=== PATIENT | male | born 1935 | race Caucasian/White ===

== ENCOUNTER 2018-11-06 10:49 | Emergency (ER) | payer OTHER, MEDICARE ==
[~2018-11-06] VITALS: Ht 177.8 cm; Wt 102.1 kg
[~2018-11-06 10:49] MED LIST: METFORMIN HCL500 MG; TOPROL XL100 MG
[2018-11-06 10:59] VITALS: BP 135/98
== END 2018-11-06 12:56 | disposition home or self-care (01) ==
LOC: ER 10:49
DX: S01.81XD Laceration without foreign body of other part of head, subsequent encounter (principal); I10 Essential (primary) hypertension; I25.10 Atherosclerotic heart disease of native coronary artery without angina pectoris; E11.9 Type 2 diabetes mellitus without complications; W19.XXXD Unspecified fall, subsequent encounter

== ENCOUNTER 2019-01-01 14:39 | Inpatient (IN) | payer OTHER, MEDICARE ==
[~2019-01-01] VITALS: Ht 177.8 cm; Wt 101.2 kg
--- NOTE | ~2019-01-01 | EMS ---
[facility] [address] [place] [address] EMS Patient Care Report Name: SHANI CASTELLANOS Room #: REG MAEVE Smith#: [id number] Admission: 01/01/19 Attend Phys: Discharge: Date of : 37 Report #: [id number] THIS REPORT FOR: //name// Report Transmitted: 01/01/2019 14:58 EMS Care Summary [facility] MED-ACT Incident [id number] @ 01/01/2019 14:02 Incident Location [address] [place] [address] Patient SHANI CASTELLANOS Male, 83 Years 1935 Patient Address [address] [place] [id number] Patient History Cardiac Arrythmia,Diabetes,Coronary Artery Bypass Graft (CABG), Patient Allergies No known allergies, Patient Medications Eliquis, Furosemide, Chief Complaint Dizzy Disposition Transported No Lights/[place] Dispatch Reason Breathing Problem Transported To [facility] Narrative [id number] was dispatched to the listed location for trouble breathing. Upon arrival patient sitting in the urgent care room complaining of dizziness. Patient stated that the dizziness started last Monday and he has had bouts of SOB that come and go. Patient stated they would just come on out of no where [facility] [address] [place] [address] EMS Patient Care Report Name: SHANI CASTELLANOS Room #: JOANA Smith#: [id number] Admission: 01/01/19 Attend Phys: Discharge: Date of : 37 Report #: [id number] whether he was sitting or up moving around. Patient denied any chest pain, back pain, abd. pain, SOB with EMS. Patient stated that he had been recently ill with some vomiting and chills. Patient stated that the facility called 911 due to his BP being low and low HR. On EMS arrival patient was hypertensive, in A flutter with a 5:1 conduction ratio and ventricular rate at approx. 40bpm, atrial rate approx. 270 bpm. Patient stated that he was not feeling dizzy sitting down with us but when he first got up from the urgent care bed to our bed he said he started to feel a little dizzy. Patient stated that he regulates his diabetes with insulin and that he had just eaten pancakes with syrup not long before EMS picked him up. Initial Vitals @14:14P: 200,[place] Suspected: false @14:26P: 165,BP: 194/72, @14:31P: 149,BP: 195/70, @14:08P: 166,R: 16,BP: 199/73,Pain: 0/10,GCS: 15,Glucose: 295,SpO2: 96,Revised Trauma: 12, Assessments @14:09MENTAL:No Abnormalities,SKIN:No Abnormalities,HEENT:Head/Face: No Abnormalities,Eyes: No Abnormalities,Neck/Airway: No Abnormalities,LUNG SOUNDS:General: No Abnormalities,Left Upper: No Abnormalities,Right Upper: No Abnormalities,Left Lower: No Abnormalities,Right Lower: No Abnormalities,ABDOMEN:General: No Abnormalities,Left Upper: No Abnormalities,Right Upper: No Abnormalities,Left Lower: No Abnormalities,Right Lower: No Abnormalities,PELVIS//GI:No Abnormalities,EXTREMITIES:Left Arm: No Abnormalities,Right Arm: No Abnormalities,Left Leg: No Abnormalities,Right Leg: No Abnormalities,PULSE:NEURO:No Abnormalities, Impression Dizziness Procedures @14:35Normal Saline (.9% NaCl) 250cc (18 ga) Site: Antecubital-RightResponse: UnchangedSucceeded@14:1412-Lead ECGResponse: UnchangedSucceeded Timeline 14:01,Call Received 14:01,Psap Call 14:02,Dispatched 14:03,En Route 14:05,On Scene 14:08,At Patient 14:08,BP: 199/73 M,PULSE: 166,RR: 16 R,SPO2: 96 Ox,ETCO2: ,B,PAIN: 0,GCS: 15, 14:14,12-Lead ECG,Response: UnchangedSucceeded, [facility] [address] [place] [address] EMS Patient Care Report Name: SHANI CASTELLANOS Room #: REG [facility].#: [id number] Admission: 01/01/19 Attend Phys: Discharge: Date of : 39 Report #: [id number] 14:14,BP: / M,PULSE: 200,RR: R,SPO2: Ox,ETCO2: ,BG: ,PAIN: ,GCS: , 14:26,BP: 194/72 M,PULSE: 165,RR: R,SPO2: Ox,ETCO2: ,BG: ,PAIN: ,GCS: , 14:27,Depart Scene 14:31,BP: 195/70 M,PULSE: 149,RR: R,SPO2: Ox,ETCO2: ,BG: ,PAIN: ,GCS: , 14:35,Normal Saline (.9% NaCl) 250cc 18 ga Site: Antecubital-Right,Response: UnchangedSucceeded, 14:35,At Destination 15:06,Call Closed Disclaimer v1.1 Copyright 2019 Locationary This EMS Care Summary contains data elements from the applicable legal record (which may be displayed differently). It is designed to provide pertinent information for the following purposes: continuity of care, clinical quality, and state data reporting. The complete legal record is available to ED staff and administrators of the receiving hospital in [employer]'s Patient Tracker. All data is provided "as is."
[2019-01-01 14:39] VITALS: BP 149/82
[~2019-01-01 14:39] MED LIST changes: -METFORMIN HCL500 MG; +METFORMIN HCL500 MG PO
[2019-01-01 15:18] LABS: ABSOLUTE NEUTROPHILS 6.7 thou/uL (1.4-8.2); BASOPHILS 0.6 % (0.0-2.0); EOSINOPHILS 1.4 % (0.0-3.0); HEMATOCRIT 34.4 % (42.0-52.0); HEMOGLOBIN 11.1 gm/dL (14.0-18.0); LYMPHOCYTES 10.4 % (24.0-44.0); MCH 27.1 pg (26.0-34.0); MCHC 32.4 g/dL (28.0-37.0); MCV 83.5 fL (80.0-100.0); MONOCYTES 8.3 % (1.0-8.0); POLYS 79.3 % (36.0-66.0); RBC 4.12 mil/uL (4.50-6.00); WBC 8.5 thou/uL (4.0-11.0)
[2019-01-01 15:25] LABS: ANION GAP 11 mmol/L (7-16); BUN 45 mg/dL (7-18); CALCIUM 9.1 mg/dL (8.5-10.1); CHLORIDE 101 mmol/L (98-107); CO2 26 mmol/L (21-32); CREATININE 1.7 mg/dL (0.7-1.3); GLUCOSE 277 mg/dL (74-106); POTASSIUM 4.3 mmol/L (3.5-5.1); SODIUM 138 mmol/L (136-145)
[2019-01-01 15:34] LABS: MAGNESIUM 1.7 mg/dL (1.8-2.4); TROPONIN-I <0.06 ng/mL (<0.06)
[2019-01-01 15:39] LABS: PLATELET COUNT 140 thou/uL (150-400); PLATELET ESTIMATE NORMAL
[2019-01-01 15:40] LABS: LARGE PLATELETS FEW
[2019-01-01] MEDS ORDERED: ELIQUIS5 MG PO (17:04)
[2019-01-01 17:22] LABS: INR 1.1
[2019-01-01 17:26] VITALS: BP 169/116
[2019-01-01 18:09] VITALS: BP 166/137
--- NOTE | 2019-01-01 19:33 | NUR ---
PT ARRIVED @1830 01/01/19, PT IN A-FLUTTER HR IN THE 20-30'S, MAG GTT RUNNING FROM THE ER. DR CASTORENA PAGED FOR HR, DR SIM CALLED BACK, NEW RECOMMENDATIONS RECIEVED. REPORT GIVEN TO BARRY CADENA.
[2019-01-01] MEDS ORDERED: RAMIPRIL2.5 MG PO (20:38)
[2019-01-02] VITALS (24 sets, daily range): BP systolic 111–191; BP diastolic 38–102
--- NOTE | 2019-01-02 01:09 | NUR ---
ASSUMED CARE OF PATIENT AT 1900. ADMISSION COMPLETE. PATIENT ABLE TO ANSWER ALL QUESTIONS EXCEPT FOR ACCURATE MEDICATION LIST. GRANDDAUGHTER TO BRING IN THE AM WELL ADVANCED DIRECTIVE. HEART RATE REMAINS IN THE 20'S WITH A FLUTTER, PATIENT ASYMPTOMATIC. BP IN THE 160'S. RESTING AT THIS TIME. CLOSELY MONITORING. POC GOALS ESTABLISHED.
[2019-01-02 02:34] LABS: HEMATOCRIT 33.5 % (42.0-52.0); HEMOGLOBIN 10.7 gm/dL (14.0-18.0); MCH 26.7 pg (26.0-34.0); MCV 83.6 fL (80.0-100.0); RBC 4.01 mil/uL (4.50-6.00); RDW 16.4 % (10.5-14.5); WBC 8.4 thou/uL (4.0-11.0)
[2019-01-02 02:40] LABS: CALCIUM 8.8 mg/dL (8.5-10.1); CREATININE 1.7 mg/dL (0.7-1.3); POTASSIUM 4.6 mmol/L (3.5-5.1)
--- NOTE | 2019-01-02 08:22 | EKG ---
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
--- NOTE | 2019-01-02 08:39 | 2DMMODE ---
[facility] [address] [place] [address] 2 D/M-MODE ECHOCARDIOGRAM Name: SHANI CASTELLANOS Room #: 241-P ADM IN M.R.#: [id number] Admission: 01/01/19 Attend Phys: Kris Mixon MD Discharge: Date of : 37 Report #: [id number] THIS REPORT FOR: //name// APPROVED REPORT Study performed: 01/02/2019 07:06:36 EXAM: Comprehensive 2D, Doppler, and color-flow Echocardiogram Patient Location: ICU Room #: 241 Status: routine BSA: 2.16 HR: 30 bpm BP: 157/61 mmHg Rhythm: Bradycardia Other Information Study Quality: Fair Technically limited study due to body habitus. Indications Bradycardia Hx: Aflutter, CABG, HTN, DM. Echo Enhancing Agent Indication: Endocardial border delineation Agent(s) / Amount(s) Used: Optison 5 cc 2D Dimensions RVDd: 42.31 mm IVSd: 9.91 (7-11mm) LVOT Diam: 21.39 (18-24mm) LVDd: 51.67 mm PWd: 10.21 (7-11mm) Ascending Ao: 30.81 (22-36mm) LVDs: 31.35 (25-40mm) Aortic Root: 34.59 mm Volumes Left Atrial Volume (Systole) Single Plane 4CH: 52.49 mL Single Plane 2CH: 81.80 mL Aortic Valve AoV Peak Keith.: 2.25 m/s AO Peak Gr.: 20.25 mmHg LVOT Max P.95 mmHg AO Mean Gr.: 9.78 mmHg [facility] [address] [place] [address] 2 D/M-MODE ECHOCARDIOGRAM Name: SHANI CASTELLANOS Room #: 241-P [facility] IN [facility].#: [id number] Admission: 01/01/19 Attend Phys: Kris Mixon MD Discharge: Date of : 37 Report #: [id number] AO V2 Mean: 1.48 m/s LVOT Max V: 1.22 m/s AO V2 VTI: 55.44 cm SOLOMON Vmax: 1.95 cm2 Mitral Valve E/A Ratio: 2.0 MV Decel. Time: 218.80 ms MV E Max Keith.: 1.31 m/s MV A Keith.: 0.67 m/s MV PHT: 63.45 ms Pulmonary Valve PV Peak Keith.: 0.99 m/s PV Peak Gr.: 3.89 mmHg Tricuspid Valve TR Peak Keith.: 3.80 m/s RAP Estimate: 10.00 mmHg TR Peak Gr.: 57.00 mmHg PA Pressure: 67.00 mmHg Left Ventricle The left ventricle is normal size. There is normal LV segmental wall motion. There is normal left ventricular wall thickness. Left ventricular systolic function is normal. LVEF is 60%. This study is not technically sufficient to allow evaluation of the LV diastolic function due to atrial fibrillation. Right Ventricle Right ventricle is not well visualized. Atria Left atrium is mildly dilated. The right atrium size is normal. Aortic Valve Aortic valve is mild calcified. Trace aortic regurgitation. There is borderline mild valvular aortic stenosis. Calculated aortic valve area is 1.9 cm2 with maximum pressure gradient of 21 mmHg and mean pressure gradient of 10 mmHg. Mitral Valve The mitral valve is normal in structure. Mild mitral regurgitation. Tricuspid Valve The tricuspid valve is normal in structure. Mild to moderate tricuspid regurgitation. Estimated PAP is 65-70mmHg. [facility] [address] [place] [address] 2 D/M-MODE ECHOCARDIOGRAM Name: SHANI CASTELLANOS Room #: 241-P ADM IN M.R.#: [id number] Admission: 01/01/19 Attend Phys: Kris Mixon MD Discharge: Date of : 37 Report #: [id number] Pulmonic Valve Pulmonic valve is not well visualized. Trace pulmonic regurgitation. Great Vessels The aortic root is normal in size. The ascending aorta is normal in size. IVC is normal in size and collapses <50% with inspiration. Pericardium There is no pericardial effusion. <Conclusion> Left ventricular systolic function is normal. There is normal LV segmental wall motion. LVEF is 60%. Aortic valve is mild calcified. Mild valvular aortic stenosis, no insufficiency. Calculated aortic valve area is 1.9 cm2 with maximum pressure gradient of 21 mmHg and mean pressure gradient of 10 mmHg. The mitral valve is normal in structure. Mild mitral regurgitation. Mild to moderate tricuspid regurgitation. Estimated pulmonary artery pressure of 65-70mmHg. There is no pericardial effusion. <ELECTRONICALLY SIGNED> By: Erick Tate MD, FACC 01/02/19837 7 7 Erick Tate MD, FACC /INF
[2019-01-02] MEDS ORDERED: GLUCOPHAGE1000 MG PO (10:50)
[2019-01-02] MEDS ORDERED: LOPRESSOR50 MG PO (10:54)
[2019-01-02] MEDS ORDERED: FUROSEMIDE 20 M20 M1 PO (10:57)
[2019-01-02] MEDS ORDERED: AMARYL2 M1 PO (10:59)
[2019-01-02] MEDS ORDERED: PANTOPRAZOLE SO40 M1 PO (11:03)
[2019-01-02] MEDS ORDERED: ATORVASTATIN CA80 MG PO (11:06)
--- NOTE | 2019-01-02 11:14 | NUR ---
ALERT AND ORIENTED AND DENIED PAIN. KAMALA A-FLUTTER ON THE MONITOR. KEPT NPO FOR PACEMAKER PLACEMENT. PATIENT OUT OF ROOM AT 1045 TO E.P LAB FOR PACEMAKER PLACEMENT.
--- NOTE | 2019-01-02 11:17 | NUR ---
Nutrition: pt admitted with SOA, dizziness. Consulted due to wound which per documentation is healing head injury. BMI 32, obesity class 1. Weights stable recently per hx. Pt having pacemaker placed today and is currently NPO. BG controlled. REC advance as appropriate to Heart healthy, Carb controlled. Will monitor intake trends. Consider low risk otherwise.
--- NOTE | 2019-01-02 12:29 | NUR ---
Case discussed with the care team and chart reviewed. Pt currently down in the EP lab for pacemaker placement. Nursing reports that pt lives alone and is normally indep. He came in with dizziness. Gdtr is involved and brought in his medications from home. Pt's son is currently out of town but available via phone. No cm interventions indicated at this time. 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 Supportive family. Nursing to ask for therapy evals if the pt is unsteady. Will reassess postop if indicated. Possible dc home tomorrow.
--- NOTE | 2019-01-02 14:40 | NUR ---
PATIENT STILL OUT OF ROOM IN E.P. LAB FOR PACEMAKER PLACEMENT, THEREFORE UNABLE TO COMPLETE 1100 ASSESSMENT.
--- NOTE | 2019-01-02 15:12 | NUR ---
PATIENT BACK IN THE ROOM, PACEMAKER LEFT SUBCLAVIAN AND IMMOBILIZER IN PLACE. RIGHT GROIN WITH DRESSING WITH DRIED DRAINAGE, NO HEMATOMA. PATIENT INSTRUCTED TO HOLD PRESSURE WHEN SNEEZING OR COUGHING AND VERBILIZES UNDERSTANDING. DR. LEW PAGED REGARDING PATIENT BEING BACK IN THE ROOM. ICE CHIPS PROVIDED. FAMILY UPDATED.
[2019-01-03] VITALS (16 sets, daily range): BP systolic 128–176; BP diastolic 47–142
[2019-01-03 05:44] LABS: ABSOLUTE NEUTROPHILS 8.5 thou/uL (1.4-8.2); BASOPHILS 0.5 % (0.0-2.0); EOSINOPHILS 0.5 % (0.0-3.0); HEMOGLOBIN 11.2 gm/dL (14.0-18.0); LYMPHOCYTES 3.8 % (24.0-44.0); MCH 27.4 pg (26.0-34.0); MCV 82.9 fL (80.0-100.0); MONOCYTES 6.1 % (1.0-8.0); PLATELET COUNT 131 thou/uL (150-400); POLYS 89.1 % (36.0-66.0); RDW 15.9 % (10.5-14.5); WBC 9.6 thou/uL (4.0-11.0)
[2019-01-03 06:10] LABS: ALBUMIN 2.9 g/dL (3.4-5.0); CALCIUM 8.4 mg/dL (8.5-10.1); CREATININE 1.1 mg/dL (0.7-1.3); POTASSIUM 4.7 mmol/L (3.5-5.1); TOTAL BILIRUBIN 2.5 mg/dL (<0.1-1.0)
--- NOTE | 2019-01-03 06:33 | NUR ---
ASSUMED CARE OF PATIENT AT 1900. EDUCATION GIVEN REGARDING POST CARE. WILL LIKELY NEED MORE HELP, HE EATS ALL THREE MEALS A DAY OUT. STATES HE WILL TRY TO FIGURE OUT SOMEONE WHO CAN HELP SINCE HE WON'T BE ABLE TO DRIVE. GRANDDAUGHTER BROUGHT IN HEARING AID. SHE STATES HE NEEDS MORE HELP AT HOME BUT WON'T ASK FOR IT AND WILL PROBABLY REFUSE HELP. ENCOURAGE HER TO SPEAK WITH CASE MANAGEMENT TODAY. PROGRESSING SLOWLY TOWARDS POC GOALS.
--- NOTE | 2019-01-03 11:39 | P ---
[facility] [place] [address] PROCEDURE REPORT Name: SHANI CASTELLANOS Room #: 241-P ADM IN M.R.#: [id number] Admission: 01/01/19 Attend Phys: Kris Mixon MD Discharge: Date of : 37 Report #: [id number] THIS REPORT FOR: //name// CC: Kris Zacarias PROCEDURE PERFORMED: 1. Dual dual-chamber pacemaker implantation. 2. Temporary pacemaker wire placement. PREOPERATIVE DIAGNOSES: 1. Complete heart block. 2. Atrial flutter. 3. Coronary artery disease. POSTOPERATIVE DIAGNOSES: 1. Complete heart block. 2. Atrial flutter. 3. Coronary artery disease. HISTORY OF PRESENT ILLNESS: The patient is an 83-year-old with a history of coronary artery disease, status post CABG as well as a history of atrial flutter, on anticoagulation, who presented with increased fatigue and was noted to be in complete heart block and atrial flutter. His heart rates were in the 20s to 30s despite holding beta tamica therapy. He is here for a dual chamber pacemaker implantation. ANESTHESIA: The patient underwent MAC anesthesia with no anesthesia related complications. DESCRIPTION OF PROCEDURE: The patient underwent informed consent. We discussed the details of the procedure including the risks, which include but not limited to bleeding, infection, vascular damage, cardiac perforation and pneumothorax. He understood these risks and is willing to proceed. The patient was brought to the EP laboratory in fasting and sedated state, prepped and draped in sterile fashion, received IV vancomycin for antibiotic prophylaxis and underwent a venogram showing patency of left axillary vein. Next, I obtained access to the right femoral vein x 1 placing a 6-Armenian short sheath, after administering lidocaine, a quadripolar catheter was placed into the right ventricular apex for backup pacing. Of note, prior to pacemaker implantation, his heart rate was down to the 20s to 30s. Thresholds were satisfactory. The patient was then prepped for the pacemaker in a sterile fashion. I then injected lidocaine at the incision site. Incision was made, a pocket was created and access was obtained twice to left axillary vein using the extrathoracic approach with sheaths positioned in the modified Seldinger technique. Next, a lead was positioned into the right ventricle mid septum and [facility] [address] [place] [address] PROCEDURE REPORT Name: SHANI CASTELLANOS Room #: 241-P ADM IN M.R.#: [id number] Admission: 01/01/19 Attend Phys: Kris Mixon MD Discharge: Date of : 37 Report #: [id number] the atrial lead was placed in the right atrial appendage both with adequate pacing and sensing thresholds. The leads were sutured to the prepectoral fascia and then the pocket was closed in 2 layers using 2-0 for the deep layer, 3-0 for the middle layer and surgical glue was placed outer skin layer. The patient awoke neurologically and hemodynamically intact. No complications and no significant bleeding. The implanted pacemaker was a [employer], model #2272, serial #[id number]. Atrial lead was a [employer] model #2088TC, 52 cm, serial #[id number] and the ventricular lead was a [employer] model #2088TC, 58 cm, serial [id number]. The atrial pacing, sensing and impedances were within normal limits. The device was programmed to the VVIR 70-130 mode. CONCLUSIONS: 1. Successful dual-chamber pacemaker implantation. 2. Satisfactory atrial and ventricular pacing characteristics. RECOMMENDATIONS: 1. The patient will be monitored and have chest x-ray and device check in the morning. We will resume anticoagulation in the near future. 2. We will discuss possible cardioversion for his atrial flutter in the future to see if this helps with his overall exercise tolerance. <ELECTRONICALLY SIGNED> By: Jamey Zimmerman MD 01/03/19 1139 1656 0544 Jamey Zimmerman MD /nt
--- NOTE | 2019-01-03 11:40 | HC ---
[facility] [place] [address] CONSULTATION Name: SHANI CASTELLANOS Room #: 241-P [facility] IN M.R.#: [id number] Admission: 01/01/19 Attend Phys: Kris Mixon MD Discharge: Date of : 37 Report #: [id number] THIS REPORT FOR: //name// CC: Kris Zacarias CARDIOLOGY CONSULTATION REASON FOR CONSULTATION: Bradycardia. HISTORY OF PRESENT ILLNESS: The patient is an 83-year-old with history of coronary artery disease, status post CABG 10-15 years ago at [facility], also with a history of atrial fibrillation or atrial flutter diagnosed about a year ago and it sounds like per the patient they decided on a rate control strategy. Over the past couple of weeks, the patient has been noticing increased fatigue, some lightheadedness and dizziness when he stands up. He denies any girma syncopal episodes. He denies PND or orthopnea. He denies chest pain or chest tightness. REVIEW OF SYSTEMS: A 12-point review of systems was performed and it was negative other than what I mentioned above. PAST MEDICAL HISTORY: Includes: 1. Coronary artery disease. 2. Atrial fibrillation. 3. Atrial flutter. 4. Hypertension. 5. Diabetes mellitus type 2. SOCIAL HISTORY: He quit smoking at age 19. FAMILY HISTORY: Noncontributory. ALLERGIES: None. MEDICATIONS: Include Toprol 100 mg a day, which he took yesterday and metformin. PHYSICAL EXAMINATION: VITAL SIGNS: Pulse is in the 30s, respirations 14, blood pressure 156/86, sats are 97%. GENERAL: He is in no acute distress. HEENT: Oropharynx is clear. NECK: Supple, no thyromegaly. HEART: Regular rate and rhythm with no murmurs, rubs or gallops. LUNGS: Clear to auscultation bilaterally. [facility] [address] [place] [address] CONSULTATION Name: SHANI CASTELLANOS Room #: 241-P [facility] IN ..#: [id number] Admission: 01/01/19 Attend Phys: Kris Mixon MD Discharge: Date of : 37 Report #: [id number] NEUROLOGIC: Cranial nerves 2-12 are intact. DIAGNOSTIC DTA: His EKG shows atrial flutter with a bradycardic ventricular response in the 30s to 40s. LABORATORY DATA: White count 8.5, hemoglobin 11, platelets 140. Chemistry: Sodium 138, potassium 4.3, BUN 45, creatinine 1.7. Troponin is normal. TSH is normal. His chest x-ray shows no acute process. ASSESSMENT: 1. Symptomatic bradycardia. 2. Advanced AV damian disease. 3. Atrial fibrillation and atrial flutter. 4. Coronary artery disease. PLAN: The patient presents with evidence of symptomatic bradycardia. I have recommended that we stop his beta tamica. I recommend that we monitor him on telemetry either, the CCU is fine with me. He appears to be relatively stable and asymptomatic with a good blood pressure. If needed, we could always put him on a little low dose dopamine to increase his ventricular rate. We will monitor his heart rate, but we will potentially need a pacemaker prior to discharge. I have discussed the details of this procedure including the risks, which include but not limited to bleeding, infection, vascular damage as well as cardiac perforation and pneumothorax. He understands these risks and is willing to proceed if necessary. <ELECTRONICALLY SIGNED> By: Jamey Zimmerman MD 01/03/19 1140 1700 0419 Jamey Zimmerman MD /nt
--- NOTE | 2019-01-03 19:45 | NUR ---
ASSUMED CARE AT 1400, SHIFT ASSESSMENT DONE, MEDS GIVEN, VSS. DENIES PAIN, NAUSEA, VOMITING. VPACED ON THE MONITOR. RECEIVED ONE DOSE OF IV LASIX. UP WITH STANDBY, ROOM AIR. WILL CONTINUE TO ASSESS AND ASSIST WITH ADLs NEEDED.
[2019-01-04 00:50] VITALS: BP 143/66
--- NOTE | 2019-01-04 04:31 | NUR ---
PT S/P PACEMAKER. ALERT AND ORIENTED. DENIES PAIN. VITALS STABLE. ASSIST OF ONE WITH TRANSFER. VOIDING PER URINAL. POSSIBLE DISCHARGE TODAY. DENIES N/V/D. NO CHEST PAIN. PT STABLE . WILL CONTINUE TO FOLLOW POC.
[2019-01-04 04:55] VITALS: BP 152/58
[2019-01-04 06:09] LABS: HEMATOCRIT 35.1 % (42.0-52.0); HEMOGLOBIN 11.5 gm/dL (14.0-18.0); MCH 27.2 pg (26.0-34.0); MCHC 32.6 g/dL (28.0-37.0); MCV 83.4 fL (80.0-100.0); PLATELET COUNT 146 thou/uL (150-400); RBC 4.21 mil/uL (4.50-6.00); RDW 16.2 % (10.5-14.5); WBC 8.1 thou/uL (4.0-11.0)
[2019-01-04 06:16] LABS: ALBUMIN 2.9 g/dL (3.4-5.0); CALCIUM 8.7 mg/dL (8.5-10.1); CREATININE 1.2 mg/dL (0.7-1.3); POTASSIUM 4.2 mmol/L (3.5-5.1); TOTAL BILIRUBIN 1.9 mg/dL (<0.1-1.0); TOTAL PROTEIN 5.9 g/dL (6.4-8.2)
[2019-01-04 08:38] LABS: ABSOLUTE NEUTROPHILS 6.1 thou/uL (1.4-8.2); PLATELET ESTIMATE NORMAL
[2019-01-04 08:54] VITALS: BP 126/99
[2019-01-04 10:16] VITALS: BP 126/99
--- NOTE | 2019-01-04 11:34 | NUR ---
ASSUMMED PT CARE AT APPROXIMATELY 0700. PT A&O X4. FALL PRECAUTIONS IN PLACE. ASSESSMENT CHARTED. PT DENIES HAVING CHEST PAIN. PT DENIES HAVING SOB. PT DENIES HAVING ACUTE PAIN. VITAL SIGNS STABLE. BLOOD SUGARS STABLE. PT AMBULATES STEADY/INDEPENDENT. PHYSICAL THERAPY PASSED PT AD [place]. FAMILY DENIED WANTING HOME HEALTH SINCE PT CAN WALK AD [place]. PT AND FAMILY RECEIVED DISCHARGE EDUCATION. PT AND FAMILY STATED UNDERSTANDING AND DENIED HAVING FURTHER QUESTIONS. IV DC. TELE DC. PT RECEIVING TRANSPORT OFF UNIT WITH HOSPITAL TRANSPORT. PT DISCHARGING HOME. PT DENIES HAVING FURTHER CONCERNS. PT AMBULATES STEADY/INDEPENDENT. PT OFF UNIT AT APPROXIMATELY 1130.
== END 2019-01-04 11:36 | disposition home or self-care (01) | DRG 242 ==
LOC: ER 14:39 → ICU 17:08 → EROBS 17:08 → ICU 17:54 → 2N 01-03 14:22 → ENTRNSPT 01-04 11:28 → EDTRNSPTSTS 01-04 11:30 → 2N 01-04 11:36
PROVIDERS: Emergency Medicine; Internal Medicine; Internal Medicine Cardiovascular Disease; Nurse Practitioner; ADMIT Hospitalist
PROC: 02H63JZ Insertion of Pacemaker Lead into Right Atrium, Percutaneous Approach (ICD-10-PCS; principal; 2019-01-02)
PROC: 02HK3JZ Insertion of Pacemaker Lead into Right Ventricle, Percutaneous Approach (ICD-10-PCS; principal; 2019-01-02)
PROC: 0JH606Z Insertion of Pacemaker, Dual Chamber into Chest Subcutaneous Tissue and Fascia, Open Approach (ICD-10-PCS; principal; 2019-01-02)
DX: I44.2 Atrioventricular block, complete (principal); I50.31 Acute diastolic (congestive) heart failure; N17.9 Acute kidney failure, unspecified; I45.9 Conduction disorder, unspecified; I48.92 Unspecified atrial flutter; I48.20 Chronic atrial fibrillation, unspecified; I11.0 Hypertensive heart disease with heart failure; I25.10 Atherosclerotic heart disease of native coronary artery without angina pectoris; E11.9 Type 2 diabetes mellitus without complications; E78.5 Hyperlipidemia, unspecified; D64.9 Anemia, unspecified; E66.9 Obesity, unspecified; Z68.32 Body mass index [BMI] 32.0-32.9, adult; Z79.899 Other long term (current) drug therapy; Z28.21 Immunization not carried out because of patient refusal; Z79.01 Long term (current) use of anticoagulants; Z87.891 Personal history of nicotine dependence; Z95.1 Presence of aortocoronary bypass graft
CPT/HCPCS: 10078; 10081; 10203; 62110; 62900; 70005

== ENCOUNTER 2020-02-07 23:28 | Inpatient (IN) | payer OTHER, MEDICARE ==
[~2020-02-07] VITALS: Ht 182.9 cm; Wt 93.9 kg
[~2020-02-07 23:28] MED LIST changes: +AMARYL2 M1 PO; +ATORVASTATIN CA80 MG PO; +ELIQUIS5 MG PO; +FUROSEMIDE 20 M20 M1 PO; +GLUCOPHAGE1000 MG PO; +LOPRESSOR50 MG PO; +PANTOPRAZOLE SO40 M1 PO; +RAMIPRIL2.5 MG PO
[2020-02-07 23:31] VITALS: BP 138/53
[2020-02-08 00:10] LABS: BE(vivo) 1.3 mmol/L (-2 to +3); HCO3 25.2 mmol/L (22.0-26.0); PCO2 37.5 mmHg (35.0-45.0); PO2 73.1 mmHg (80.0-100.0); pH 7.446 (7.360-7.450); sO2 95.3 % (92.0-98.0)
[2020-02-08 00:14] LABS: ABSOLUTE NEUTROPHILS 7.4 thou/uL (1.4-8.2); BASOPHILS 0.2 % (0.0-2.0); HEMATOCRIT 35.7 % (42.0-52.0); HEMOGLOBIN 11.4 gm/dL (14.0-18.0); LYMPHOCYTES 3.9 % (24.0-44.0); MCH 26.8 pg (26.0-34.0); MCHC 31.9 g/dL (28.0-37.0); MCV 84.1 fL (80.0-100.0); MONOCYTES 3.8 % (1.0-8.0); PLATELET COUNT 210 thou/uL (150-400); POLYS 92.1 % (36.0-66.0); RBC 4.25 mil/uL (4.50-6.00); RDW 16.1 % (10.5-14.5)
[2020-02-08 00:23] LABS: ANION GAP 13 mmol/L (7-16); BUN 29 mg/dL (7-18); CALCIUM 8.9 mg/dL (8.5-10.1); CHLORIDE 103 mmol/L (98-107); CO2 26 mmol/L (21-32); CREATININE 1.8 mg/dL (0.7-1.3); POTASSIUM 4.6 mmol/L (3.5-5.1); SODIUM 142 mmol/L (136-145); TROPONIN-I <0.06 ng/mL (<0.06)
[2020-02-08 00:25] LABS: GLUCOSE 504 mg/dL (74-106)
[2020-02-08] MEDS ORDERED: HUMULIN 70100 UNIT/2 SUBQ (01:42)
[2020-02-08 02:45] VITALS: BP 132/64
[2020-02-08 02:55] VITALS: BP 132/64
[2020-02-08 03:19] LABS: HEMATOCRIT 35.4 % (42.0-52.0); HEMOGLOBIN 11.5 gm/dL (14.0-18.0); MCH 27.1 pg (26.0-34.0); MCHC 32.5 g/dL (28.0-37.0); MCV 83.6 fL (80.0-100.0); RBC 4.24 mil/uL (4.50-6.00); RDW 16.3 % (10.5-14.5)
[2020-02-08 03:26] LABS: CALCIUM 8.5 mg/dL (8.5-10.1); CREATININE 1.5 mg/dL (0.7-1.3); POTASSIUM 4.5 mmol/L (3.5-5.1)
--- NOTE | 2020-02-08 03:30 | NUR ---
PT. ADMITTED TO THE UNIT FROM THE EMERGENCY ROOM ACCOMPANIED BY STAFF. HE IS DIFFICULT TO COMMUNICATE WITH HE IS VERY HARF OF HEARING. COMMUNICATION DONE BY USEING A WRITING NOTEPAD. ADMISSION ASSESSMENT AND HISTORY IS COM- PLETED. BED ALARM IS ON.
[2020-02-08 03:45] LABS: CHOLESTEROL 94 mg/dL (<200); HDL CHOLESTEROL 14 mg/dL (>40); LDL CHOLESTEROL 51 mg/dL (<100); TC:HDL 6.7 Ratio (Not establshd); TRIGLYCERIDE 145 mg/dL (<150); VLDL 29 mg/dL (<40)
[2020-02-08 03:46] LABS: SERUM ASSESSMENT Clear
--- NOTE | 2020-02-08 05:23 | NUR ---
I DELIVERED EKG DONE IN ER TO 3WEST. GLASSES, LEFT HEARING AID PLACED IN PATIENT'S ROOM ON BEDSIDE TABLE IN RED PLASTIC SPECIMEN BAG
[2020-02-08 07:46] VITALS: BP 117/67
[2020-02-08 11:53] VITALS: BP 115/50
[2020-02-08 15:54] VITALS: BP 123/59
--- NOTE | 2020-02-08 18:15 | NUR ---
ASSUMED CARE PT SHIFT CHANGE. ASSESSMENTS CHARTED.MEDS GIVEN PER MAR. PT ALERT AND ORIENTED.VSS. DENIES PAIN. OFF BIPAP UPON INITIAL ASSESSMENT OF PT. O2 SATS WNL ON 5L 02 NC. DENIES SOB. PT TOLERATING MEALS WELL. PT INCONT OF BLADDER. CONDOM CATH IN PLACE. FAMILY UPDATED ON POC. PT CURRENTLY RESTINGIN BED IN NO APPARENT DISTRESS. CONTINUING TO MONITOR AND FOLLOW POC. WILL PASS ON REPORT TO TRELL CADENA.
[2020-02-08 20:30] VITALS: BP 140/54
[2020-02-09 04:36] VITALS: BP 141/57
[2020-02-09 05:36] LABS: GLYCOHEMOGLOBIN (HGB A1C) 10.2 % (4.8-5.6)
[2020-02-09 05:59] LABS: CREATININE 1.2 mg/dL (0.7-1.3); DIRECT BILIRUBIN 0.7 mg/dL (<0.1-0.2); TOTAL BILIRUBIN 1.3 mg/dL (0.2-1.0); TOTAL PROTEIN 5.8 g/dL (6.4-8.2)
[2020-02-09 08:38] VITALS: BP 133/88
[2020-02-09 09:51] LABS: ABSOLUTE NEUTROPHILS 9.4 thou/uL (1.4-8.2); BASOPHILS 0.4 % (0.0-2.0); HEMOGLOBIN 10.8 gm/dL (14.0-18.0); LYMPHOCYTES 3.7 % (24.0-44.0); MCH 27.3 pg (26.0-34.0); MCHC 32.7 g/dL (28.0-37.0); MCV 83.5 fL (80.0-100.0); MONOCYTES 4.1 % (1.0-8.0); POLYS 91.8 % (36.0-66.0); RBC 3.95 mil/uL (4.50-6.00); RDW 16.3 % (10.5-14.5); WBC 10.2 thou/uL (4.0-11.0)
[2020-02-09 09:52] LABS: PLATELET COUNT 221 thou/uL (150-400)
[2020-02-09 10:10] LABS: CALCIUM 8.8 mg/dL (8.5-10.1); CREATININE 1.2 mg/dL (0.7-1.3); POTASSIUM 4.3 mmol/L (3.5-5.1)
--- NOTE | 2020-02-09 10:32 | HC ---
[facility] [place] [address] CONSULTATION Name: SHANI CASTELLANOS Room #: 358-P ADM IN M.R.#: [id number] Admission: 02/08/20 Attend Phys: Luis Hein Discharge: Date of : 39 Report #: [id number] THIS REPORT FOR: cc: Denny Zacarias MD,Abdullahi Verde MD, MD ~ DATE OF SERVICE: 02/08/2020 INFECTIOUS DISEASE CONSULTATION ATTENDING PHYSICIAN: Dr. Hein. REASON FOR EVALUATION: COVID-19 infection, complicated by pneumonitis and respiratory failure, also has diabetes mellitus that is uncontrolled as well. HISTORY OF SUBJECTIVE: Chart reviewed, patient examined. This is an 84-year-old who presented in the Emergency Room with complaints of progressive dyspnea described over the last 1-2 weeks. EMS was called to his home and saturations were in the 80s. He subsequently required supplemental oxygen at 5 liters. He states this has helped significantly. He does have a cough, is not aware of any fevers, although he recorded temperature of 99.5 here. He states his appetite has been adequate. As per the evaluation, he did test positive for COVID antigen. Lactic acid was elevated at 4.3. D-dimer was elevated at 3.33 and procalcitonin is 0.46. Chest x-ray showed cardiomegaly, vascular congestion, perihilar infiltrates. He was empirically started on therapy with ceftriaxone and azithromycin. ALLERGIES: None known. MEDICATIONS: Include azithromycin, insulin, metoprolol, atorvastatin, enoxaparin, ceftriaxone, dexamethasone, pantoprazole, albuterol, p.r.n. analgesics and antiemetics. PAST MEDICAL HISTORY: Diabetes mellitus type 2, has been complicated by known vasculopathy; coronary artery disease; hypertension; previous bypass grafting; cardiomyopathy. SOCIAL HISTORY: Former smoker. No significant ethanol. FAMILY HISTORY: Noncontributory. REVIEW OF SYSTEMS: Otherwise, unremarkable. PHYSICAL EXAMINATION: [facility] [address] [place] [address] CONSULTATION Name: SHANI CASTELLANOS Room #: 358-P [facility] IN [facility].#: [id number] Admission: 02/08/20 Attend Phys: Luis Hein Discharge: Date of : 39 Report #: [id number] GENERAL: He appears chronically ill. He has bppn-mo-kzsfmenm distress at this point. He is generally lucid. He does have hearing deficits, which is somewhat difficult to communicate with him. VITAL SIGNS: Temperature 98, pulse 70, respirations 29, blood pressure 117/67, saturations 100% on 5 liters per nasal cannula, previously had been on BiPAP. HEENT: Normocephalic. Extraocular muscles intact. NECK: Supple. LUNGS: Scattered coarse breath sounds. HEART: Distant, regular. ABDOMEN: Obese, somewhat firm, nontender. EXTREMITIES: No cyanosis. GENITOURINARY AND RECTAL: Deferred. LABORATORY DATA: CTA chest PE protocol showed no evidence of PE, multifocal alveolar pulmonary infiltrates bilaterally, mild wall thickening. Lactic acid 1.5, most recently. Electrolytes: Sodium 144, potassium 4.5, chloride 105, bicarbonate 28, anion gap of 11, BUN and creatinine 26 and 1.5, glucose of 402. Estimated GFR 45. CBC: White count of 8.0, H and H 11.5 and 35.4, platelets of 201. ASSESSMENT: COVID-19 infection, complicated by pneumonitis and does have respiratory failure. This is likely multifactorial as well. It is difficult to ascertain exactly when the issue of coronavirus symptomatic became evident. Certainly, there is very little reserve at this point. It is reasonable, can start Remdesivir, we will adjust antibacterial as well, had vitamins. Continue efforts to support with oxygen therapy, perhaps consider diuresis as well. We will monitor expectantly, is certainly tenuous at this point. <ELECTRONICALLY SIGNED> By: Abdullahi Radford MD 02/09/20 1032 [id number] Abdullahi Radford MD /nt
[2020-02-09 11:57] VITALS: BP 130/44
--- NOTE | 2020-02-09 14:21 | NUR ---
ASSUMED CARE OF PT AT 0700. PT AOX4 HARD OF HEARING IN NO ACUTE DISTRESS. ON WEANED TO 5L NC. REPORTS FEELING MUCH BETTER TODAY. IVF INFUSING PER ORDER. VITALS STABLE. WCM.
[2020-02-09 15:24] VITALS: BP 152/67
[2020-02-09 19:48] VITALS: BP 137/51
--- NOTE | 2020-02-10 03:35 | NUR ---
sitting up in the chair sleeping tonight. that is his usual preference. continues on 5 liters n/c. keeping o2 sats mid 90s. needs extra assist with the urinal, he dribbles and is messy. afebrile, bp's wnl's. his is comfortale with his breathing. no distress.
[2020-02-10 05:38] LABS: BASOPHILS 0.1 % (0.0-2.0); EOSINOPHILS 0.1 % (0.0-3.0); HEMATOCRIT 34.3 % (42.0-52.0); HEMOGLOBIN 11.2 gm/dL (14.0-18.0); LYMPHOCYTES 5.5 % (24.0-44.0); MCH 27.1 pg (26.0-34.0); MCHC 32.7 g/dL (28.0-37.0); MCV 82.8 fL (80.0-100.0); MONOCYTES 4.2 % (1.0-8.0); PLATELET COUNT 231 thou/uL (150-400); POLYS 90.1 % (36.0-66.0); RBC 4.14 mil/uL (4.50-6.00); RDW 16.2 % (10.5-14.5); WBC 9.9 thou/uL (4.0-11.0)
[2020-02-10 06:04] LABS: ALBUMIN 2.2 g/dL (3.4-5.0); CREATININE 1.2 mg/dL (0.7-1.3); DIRECT BILIRUBIN 0.6 mg/dL (<0.1-0.2); TOTAL BILIRUBIN 1.1 mg/dL (0.2-1.0); TOTAL PROTEIN 5.9 g/dL (6.4-8.2)
[2020-02-10 06:19] VITALS: BP 142/59
--- NOTE | 2020-02-10 07:07 | EKG ---
[facility] [place] [address] ELECTROCARDIOGRAM REPORT Name: SHANI CASTELLANOS Room #: 358-P ADM IN M.R.#: [id number] Admission: 02/08/20 Attend Phys: Luis Hein Discharge: Date of : 39 Report #: [id number] THIS REPORT FOR: cc: Denny Zacarias MD, David MD Santiago,Jabari KO [facility] ~ THIS REPORT FOR: //name// [facility] ED Test Date: 2020-02-07 Test Time: 23:39:08 Pat Name: SHANI CASTELLANOS Department: Room: [facility] Gender: M Oyster Grower: : 1935 Requested By: Alessandro Caro Order Number: [id number] MD: Jabari Scruggs Measurements Intervals [place] Rate: 70 P: [place]: QRS: -48 QRSD: 230 T: -21 QT: 576 QTc: 622 Interpretive Statements Afib/flut and V-paced complexes No further analysis attempted due to paced rhythm Baseline wander in lead(s) V6 Compared to ECG 01/01/2019 14:51:01 Atrial flutter no longer present Right bundle-branch block no longer present Electronically Signed On 02-10-2020 7:07:56 COMPRESSOR REPAIRER by Jabari Scruggs [email or web address] <ELECTRONICALLY SIGNED> By: Jabari Scruggs MD, FACC 02/10/20 0707 [id number] Jabari Scruggs MD, FACC /EPI
--- NOTE | 2020-02-10 07:08 | EKG ---
[facility] [place] [address] ELECTROCARDIOGRAM REPORT Name: SHANI CASTELLANOS Room #: 358- ADM IN M.R.#: [id number] Admission: 02/08/20 Attend Phys: Luis Hein Discharge: Date of : 39 Report #: [id number] THIS REPORT FOR: cc: Denny Zacarias MD,Denny Scruggs,Jabari KO [facility] ~ THIS REPORT FOR: //name// [facility] ED Test Date: 2020-02-08 Test Time: 00:13:27 Pat Name: SHANI CASTELLANOS Department: Room: [facility] Gender: M Steward/Stewardess Room: italia cali : 1935 Requested By: Luis Hein Order Number: [id number] MD: Jabari Scruggs Measurements Intervals [place] Rate: 117 P: [place]: QRS: 115 QRSD: 211 T: 92 QT: 474 QTc: 662 Interpretive Statements Afib/flut and V-paced complexes No further analysis attempted due to paced rhythm Baseline wander in lead(s) V1 Compared to ECG 02/07/2020 23:39:08 No significant changes Electronically Signed On 02-10-2020 7:08:15 INTERNAL SECURITY MANAGER by Jabari Scruggs [email or web address] <ELECTRONICALLY SIGNED> By: Jabari Scruggs MD, FACC 02/10/20 0708 001 Jabari Scruggs MD, [facility] /EPI
[2020-02-10 07:25] VITALS: BP 116/47
[2020-02-10 12:16] VITALS: BP 124/48
--- NOTE | 2020-02-10 13:41 | NUR ---
PT CARE ASSUMED AT 0700, ALERT AND ORIENTED X4, HARD OF HEARING. PT DENIES ANY PAIN, NAUSEA AND VOMITTING. PT IS ON 4L OF OXYGEN, NO SIGNS OF DISTRESS NOTED. UP IN THE CHAIR WITH ALARM ON. ASSESSMENT AND VITALS WNL. FALL PRECAUTIONS IN PLACE. DENIES ANY NEEDS. PT IS PROGRESSING TOWARDS CARE.
[2020-02-10 14:40] VITALS: BP 113/50
--- NOTE | 2020-02-10 16:00 | NUR ---
INITIAL ASSESSMENT: ROBERT reviewed chart and spoke with nursing and attending physician. Pt was admitted from home due to shortness of breath. Pt placed in Enhanced Isolation due to COVID-19. Pt is afebrile and on 4L of O2. Pt is on IV abx and IV steroids. Pt is completing course of Remdesivir. ROBERT placed call to pt's room. Pt unable to hear SW via phone. SW discussed with nursing. Pt's family to bring in hearing aids. Per chart, pt lives at home. Prior to admission, pt was independent with ADLs. 3 steps to enter his home. No steps inside. Pt's PCP is Dr. Denny Zacarias. SW to follow up with pt/family at a later time. Recommendation made for pt to have HH services at time of discharge. ROBERT is following to assist as needed with discharge planning.
[2020-02-10 20:00] VITALS: BP 135/55
[2020-02-11 04:31] VITALS: BP 145/60
[2020-02-11 06:03] LABS: ALBUMIN 2.2 g/dL (3.4-5.0); CREATININE 0.9 mg/dL (0.7-1.3); DIRECT BILIRUBIN 0.5 mg/dL (<0.1-0.2); TOTAL BILIRUBIN 1.2 mg/dL (0.2-1.0); TOTAL PROTEIN 5.9 g/dL (6.4-8.2)
--- NOTE | 2020-02-11 06:22 | NUR ---
Assumed pt care at 1900. A/OX4,VSS. Verbalized not feeling well at the beginning of shift but couldn't figure out how to explain it to senior writer,later on pt indicated he would like to have a BM. Ambulated to w/SBA nad had a BM. Pt verbalized feeling well therafter. Denies pain on assessment. Resting quietly in bed at this time,will continue to monitor pt.
[2020-02-11 07:24] VITALS: BP 166/63
[2020-02-11 14:01] VITALS: BP 132/47
[2020-02-11 15:05] VITALS: BP 131/53
--- NOTE | 2020-02-11 15:15 | NUR ---
PT CARE ASSUMED AT 0700, PT ALERT AND ORIENTED X4, FORGETFUL AND [place] IN [place] AT TIMES. PT IS ON 3L OF OXYGEN NOW, NO SIGNS OF DISTRESS NOTED. PT HAS BEEN UP IN THE CHAIR ALL DAY, EDUCATED TO PT TO ELEVATE LOWER EXTREMITIES UP AT TIMES, TO PREVENT SWOLLEN LEGS. VITAL AND ASSESSMENT STABLE. DENIES ANY PAIN. FALL PRECAUTIONS IN PLACE. PT IS PROGRESSING TOWARDS CARE. WILL COTINUE TO MONITOR.
--- NOTE | 2020-02-11 15:40 | NUR ---
ROBERT reviewed chart and spoke with nursing and attending physician. Pt remains in Enhanced Isolation due to COVID-19. Pt is afebrile and on 4L of O2. Pt is on IV abx and IV steroids. Pt is completing course of Remdesivir. ROBERT placed call to pt's room. No answer. ROBERT spoke with pt's granddtr, Ashely, via phone. Introduced role of ROBERT. Pt normally lives at home alone. Pt does have several steps inside the home. Pt is independent with ADLs and does not use any DME. Pt has used HH in the past, but unsure name of provider. 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 Pt's granddtr is unsure name of pt's current PCP, but does state that pt is not always compliant with taking his medications. Pt's son, Bernardo, is involved in pt's care and has been assisting pt at home during the COVID pandemic. ROBERT contact info to be provided to Bernardo. Will need to discuss discharge needs. Discharge is anticipated for . ROBERT is following to assist as needed with discharge planning.
[2020-02-11 21:34] VITALS: BP 141/70
[2020-02-12 03:56] VITALS: BP 129/58
--- NOTE | 2020-02-12 05:32 | NUR ---
ASSUME CARE 1900. PT/VITALS STABLE. DENIES ANY PAIN. MODERATE TOLERANCE TO ACTIVITY WITH MILD SOB NOTED ON EXERTION. 2LNC/WHEEZES NOTED. PT DENIES ANY COUGH. NO DISTRESS NOTED THROUGH THE SHIFT. ASSESSMENT CHARTED. PROGRESSING WELL WITH POC. PLAN IS POSSIBLE DISCHARGE WITHIN 1-2 DAYS. WILL CONTIUE TO MONITOR AND FOLLOW WITH POC
[2020-02-12 06:33] LABS: ALBUMIN 2.4 g/dL (3.4-5.0); DIRECT BILIRUBIN 0.6 mg/dL (<0.1-0.2); TOTAL BILIRUBIN 1.2 mg/dL (0.2-1.0); TOTAL PROTEIN 5.7 g/dL (6.4-8.2)
[2020-02-12 11:39] VITALS: BP 132/54
[2020-02-12 14:28] VITALS: BP 132/54
--- NOTE | 2020-02-12 14:29 | NUR ---
ROBERT reviewed chart and spoke with nursing and attending physician. Pt remains in Enhanced Isolation due to COVID-19. Pt is afebrile and on 2L of O2. Pt is on IV abx and IV steroids. Pt to complete course of Remdesivir today. Discharge home with HH is anticipated for tomorrow. Per attending, pt should be able to wean off O2 prior to discharge. If not, pt will need a rest/exercise oximetry to determine home O2 needs. ROBERT placed call to pt's room. No answer. ROBERT received call from pt's brother, Bernardo ([phone]). Introduced role of SW. Pt and his check on pt regularly. Pt has other family members who are able to check on pt. Bernardo and his were both tested earlier in the week for COVID, but do not have their test results back yet. Family has multiple questions about pt being ready for discharge and what the restrictions will be when he is discharged. ROBERT discussed possible SNF placement if they feel pt will need more care than family can provide. Family states they do not want him to go to a facility, as they will not be able to visit and pt will not be agreeable. Pt's family agreeable with HH referral. Confirmed pt's home address and phone number. Pt has glucometer and testing strips at home. Pt's brother states he does not always check his BG and administer insulin. ROBERT explained that HH can assist with education and med mgmt. Options for HH providers discussed. No preference voiced. ROBERT provided Bernardo's contact info to attending physician to call family to discuss discharge. ROBERT faxed HH referral to [facility] and notified liaison of new referral and anticipated discharge timeframe. Contact info for HH placed in pt's discharge summary. Finalized discharge orders/summary will need to be faxed to HH when available. Bernardo will be able to provide transportation home. ROBERT is following to assist as needed with discharge planning. [facility]--
[2020-02-12 19:20] VITALS: BP 146/574
--- NOTE | 2020-02-12 19:24 | NUR ---
ASSUMED PATIENT CARE AT 0700. A/O X4. NO DISDRESSS NOTED. PROGRESSING TOWARDS POC GOALS.
[2020-02-13 03:26] VITALS: BP 128/57
[2020-02-13 05:49] LABS: HEMATOCRIT 32.2 % (42.0-52.0); HEMOGLOBIN 10.5 gm/dL (14.0-18.0); MCH 26.9 pg (26.0-34.0); MCHC 32.7 g/dL (28.0-37.0); MCV 82.1 fL (80.0-100.0); RBC 3.92 mil/uL (4.50-6.00); RDW 15.5 % (10.5-14.5); WBC 9.1 thou/uL (4.0-11.0)
[2020-02-13 06:12] LABS: CALCIUM 8.9 mg/dL (8.5-10.1); CREATININE 1.1 mg/dL (0.7-1.3); POTASSIUM 4.3 mmol/L (3.5-5.1)
[2020-02-13 07:20] VITALS: BP 139/96
[2020-02-13] MEDS ORDERED: CEFDINIR300 MG PO (10:25)
[2020-02-13] MEDS ORDERED: PROVENTIL HFA6.7 G1 INH (10:25)
[2020-02-13] MEDS ORDERED: VITAMINC500 PO (10:26)
[2020-02-13] MEDS ORDERED: VITAMIN D325 MC1 PO (10:26)
[2020-02-13] MEDS ORDERED: ZINC SULFATE 2220 MG PO (10:26)
[2020-02-13] MEDS ORDERED: PREDNISONE 10 M10 M1 PO (10:27)
[2020-02-13 11:41] VITALS: BP 130/52
--- NOTE | 2020-02-13 14:21 | NUR ---
ASSUMED PATIENT CARE AT 0700. A/0 X4. TOLERATED ON RA. DC TO [facility] WITH HH. DC ORDER FAXED TO .
== END 2020-02-13 14:15 | disposition home health service (06) | DRG 177 ==
LOC: ER 23:28 → EROBS 02-08 01:14 → 3W 02-08 01:14
PROVIDERS: Emergency Medicine; Hospitalist; Nurse Practitioner Family; Specialist; ADMIT Hospitalist; ATTEND Hospitalist
PROC: XW033E5 Introduction of Remdesivir Anti-infective into Peripheral Vein, Percutaneous Approach, New Technology Group 5 (ICD-10-PCS; principal; 2020-02-08)
PROC: 5A09357 Assistance with Respiratory Ventilation, Less than 24 Consecutive Hours, Continuous Positive Airway Pressure (ICD-10-PCS; principal; 2020-02-08)
DX: U07.1 COVID-19 (principal); J96.01 Acute respiratory failure with hypoxia; J12.89 Other viral pneumonia; I42.9 Cardiomyopathy, unspecified; M31.9 Necrotizing vasculopathy, unspecified; N17.9 Acute kidney failure, unspecified; I10 Essential (primary) hypertension; I25.10 Atherosclerotic heart disease of native coronary artery without angina pectoris; E11.65 Type 2 diabetes mellitus with hyperglycemia; K21.9 Gastro-esophageal reflux disease without esophagitis; I48.91 Unspecified atrial fibrillation; E78.5 Hyperlipidemia, unspecified; Z95.0 Presence of cardiac pacemaker; Z98.49 Cataract extraction status, unspecified eye; Z95.1 Presence of aortocoronary bypass graft; Z87.891 Personal history of nicotine dependence; Z91.19 Patient's noncompliance with other medical treatment and regimen; Z79.899 Other long term (current) drug therapy
CPT/HCPCS: 10879

== ENCOUNTER → 2020-11-17 | Outpatient (CLI) | payer OTHER, MEDICARE ==
[~2020-11-17] MED LIST changes: +CEFDINIR300 MG PO; +HUMULIN 70100 UNIT/2 SUBQ; +PREDNISONE 10 M10 M1 PO; +PROVENTIL HFA6.7 G1 INH; +VITAMIN D325 MC1 PO; +VITAMINC500 PO; +ZINC SULFATE 2220 MG PO
== END ==
LOC: SJCVC 10:56
PROVIDERS: ATTEND Internal Medicine Cardiovascular Disease
DX: I48.21 Permanent atrial fibrillation (principal); I25.119 Atherosclerotic heart disease of native coronary artery with unspecified angina pectoris; I48.92 Unspecified atrial flutter; I11.0 Hypertensive heart disease with heart failure; I50.30 Unspecified diastolic (congestive) heart failure; E11.9 Type 2 diabetes mellitus without complications; I45.9 Conduction disorder, unspecified; Z95.1 Presence of aortocoronary bypass graft; Z79.84 Long term (current) use of oral hypoglycemic drugs; Z79.899 Other long term (current) drug therapy